=== PATIENT | male | born 1950 | race Caucasian/White ===

== ENCOUNTER → 2021-08-03 | Outpatient (CLI) | payer MEDICARE | LOC: OPSV 12:26 → CT 13:00 | DX: I78.0 Hereditary hemorrhagic telangiectasia (principal); D64.9 Anemia, unspecified; R77.2 Abnormality of alphafetoprotein; D69.6 Thrombocytopenia, unspecified; C18.9 Malignant neoplasm of colon, unspecified; E83.118 Other hemochromatosis; E86.0 Dehydration; K76.0 Fatty (change of) liver, not elsewhere classified; N20.0 Calculus of kidney; E27.8 Other specified disorders of adrenal gland | CPT/HCPCS: 74170; 96360; 96361 ==